=== PATIENT | female | born 1990 | race American Indian/Alaskan Native ===

== ENCOUNTER 2018-07-27 10:36 | Emergency (ER) | payer MEDICAID ==
[2018-07-27] MEDS ORDERED: PEPCID IV ONE (12:19)
[2018-07-27] MEDS ORDERED: ZOFRAN IV ONE (12:19)
[2018-07-27] MEDS ORDERED: NACL 0.9% 1000 ML 1,000 ML IV ONE (12:19)
--- NOTE | 2018-07-27 13:58 | Emergency Department Report ---
Vomiting/Diarrhea - HPI Chief Complaint: Nausea/Vomiting/Diarrhea Stated Complaint: CRAMPS/DIZZY/HEADACHE Time Seen by Provider: 07/27/18 12:04 Duration: 2 Days Severity: moderate Nausea/Vomiting Severity: Moderate Diarrhea Severity: Mild (yesterday but improved after Imodium) Pain Severity: None Symptoms: No Fever, No Able to Tolerate Fluids, No Recent Unusual Foods, No Recent Untreated Water, No Recent use of Antibiotics, No Recent URI Symptoms ED Review of Systems ROS: Stated complaint: CRAMPS/DIZZY/HEADACHE Other details as noted in HPI Comment: All other systems reviewed and negative ED Past Medical Hx - Past Medical History Previous Medical History?: No - Surgical History Past Surgical History?: No - Social History Smoking Status: Never Smoker Substance Use Type: None - Medications Home Medications: Home Medications Medication Instructions Recorded Confirmed Last Taken Type Famotidine [Pepcid] 40 mg PO QHS #10 tablet 07/27/18 Unknown Rx Ondansetron [Zofran Odt] 4 mg PO Q8HR PRN #10 tab.rapdis 07/27/18 Unknown Rx Vomiting Diarrhea Exam - Exam General: Vital signs noted. No distress. Alert and acting appropriately. HEENT: Yes Moist Mucous Membranes, No Pharyngeal Erythema, No Pharyngeal Exudates, No Rhinorrhea, No Conjuctival Injection, No Frontal Tenderness, No Maxillary Tenderness Neck: No Adenopathy, No Rigidity Lungs: Yes Clear Lung Sounds, Yes Good Air Exchange, No Wheezes, No Stridor, No Cough, No Nasal Flaring, No Retractions, No Use of Accessory Muscles Heart exam: Regular: Yes, Murmur: No, Tachycardia: No Abdomen: Tenderness: No, Peritoneal Signs: No, Distention: No, Hyperactive Bowel sounds: No Skin exam: Rash: No, Edema: No, Normal turgor: Yes Neurologic: Alert and oriented, no deficits. Musculoskeletal: Unremarkable. ED Course Vital Signs 07/27/18 10:51 Temperature 97.4 F L Pulse Rate 89 Respiratory 16 Rate Blood Pressure 116/53 O2 Sat by Pulse 100 Oximetry ED Medical Decision Making - Medical Decision Making Clinically stated that she has some mild dizziness when standing. She was hydrated given antiemetics. Patient states symptoms have improved and she'll be discharged home. Critical care attestation.: If time is entered above; I have spent that time in minutes in the direct care of this critically ill patient, excluding procedure time. ED Disposition Clinical Impression: Viral gastroenteritis Disposition: DC-01 TO HOME OR SELFCARE Is pt being admited?: No Does the pt Need Aspirin: No Condition: Stable Instructions: Gastroenteritis (ED) Referrals: VALORIE TREVINO [Primary Care Provider] - 3-5 Days Time of Disposition: 14:00
[2018-07-27 14:19] VITALS: BP 120/74
== END 2018-07-27 14:20 | disposition home or self-care (01) ==
LOC: ED 10:36
DX: A08.4 Viral intestinal infection, unspecified (principal)
CPT/HCPCS: 96361; 96374; 96375; 99282; J2405; J7030